=== PATIENT | female | born 1945 | race African-American/Black ===

== ENCOUNTER 2017-05-13 13:33 | Inpatient (IN) | payer MEDICARE ==
[~2017-05-13] VITALS: Ht 172.7 cm; Wt 86.2 kg
[~2017-05-13 13:33] MED LIST: METF500T4 PO
[2017-05-13] MEDS ORDERED: METHYLPREDNISOLONE SOD SUCC 125 MG/2 ML VIAL IV ONE (14:00)
[2017-05-13] MEDS ORDERED: ALBUTEROL (0.5%) 2.5MG/0.5ML NEB HHN ONE ×3 (14:00→16:00)
[2017-05-13] MEDS ORDERED: IPRATROPIUM BROMIDE (0.02%) 0.5MG/2.5ML NEB HHN ONE ×2 (14:00→16:00)
[2017-05-13] MEDS ORDERED: IPRATROPIUM/ALBUTEROL 0.5-3(2.5)MG/3ML NEB ONE (14:01)
[2017-05-13 14:11] LABS: BASOPHILS % 0.9 % (0.0-2.0); EOSINOPHILS % 5.8 % (0.0-5.0); HEMATOCRIT. 44.4 % (36.0-48.0); HEMOGLOBIN. 15.2 g/dL (12.0-16.0); LYMPHOCYTES % 14.1 % (20.0-50.0); MEAN CORPUSCULAR HEMOGLOBIN 31.1 pg (28.0-32.0); MEAN CORPUSCULAR VOLUME 90.8 fL (81.0-99.0); MEAN PLATELET VOLUME 8.5 fl (7.4-10.4); MONOCYTES % 6.8 % (2.0-8.0); NEUTROPHILS % 72.4 % (40.0-76.0); PLATELET 251 x1000/uL (130-400); RED BLOOD CELL COUNT 4.89 mill/uL (4.2-5.4); RED CELL DISTRIBUTION WIDTH 13.3 % (11.6-14.6)
[2017-05-13 14:24] LABS: CARBON DIOXIDE 33 mEq/L (21-32); CHLORIDE 101 mEq/L (98-107)
[2017-05-13] MEDS ORDERED: INSULIN REGULAR (HUMULIN R) 300UNITS/3ML SUBCUT ONE (17:15)
[2017-05-13 18:02] VITALS: BP 126/81
[2017-05-13] MEDS ORDERED: AMLO10TA80 PO (18:16)
[2017-05-13] MEDS ORDERED: DORZ10DR9 EACHEYE (19:02)
[2017-05-13] MEDS ORDERED: LEVOFLOXACIN 500MG TABLET PO NR (19:45)
[2017-05-13] MEDS ORDERED: POTASSIUM CHLORIDE 20MEQ TABLET SR PO NR (19:45)
[2017-05-13 20:00] VITALS: BP 125/85
[2017-05-13] MEDS ORDERED: DEXTROSE 50% WATER 50ML SYRINGE IV PRN (20:00)
[2017-05-13] MEDS: BLOOD SUGAR DIAGNOSTIC STRIP TEST SCH (20:28)
[2017-05-13] MEDS: IPRATROPIUM/ALBUTEROL 0.5-3(2.5)MG/3ML NEB HHN SCH ×2 (20:34→23:43)
[2017-05-13] MEDS: INSULIN LISPRO 100 UNITS/ML SUBCUT SCH (20:58)
[2017-05-13] MEDS ORDERED: ENOXAPARIN 40MG/0.4ML SYR SUBCUT SCH (21:00)
[2017-05-13] MEDS: METHYLPREDNISOLONE SOD SUCC 40 MG/ML VIAL IV SCH (21:33)
[2017-05-13] MEDS: SODIUM CHL 0.45% + KCL 20MEQ/L 1,000 ML IV SCH (21:33)
[2017-05-13] MEDS ORDERED: ONDANSETRON HCL 4MG/2ML VIAL IV PRN (22:30)
[2017-05-13] MEDS ORDERED: HYDROCODONE/ACETAMINOPHEN 5/325MG TABLET PO PRN (22:30)
[2017-05-13] MEDS ORDERED: GUAIFENESIN/CODEINE 100-10MG/5ML UDC PO PRN (22:45)
[2017-05-14] VITALS: BP 113/73
[2017-05-14 04:00] VITALS: BP 129/76
[2017-05-14] MEDS: IPRATROPIUM/ALBUTEROL 0.5-3(2.5)MG/3ML NEB HHN SCH ×3 (04:00→16:16)
[2017-05-14] MEDS: METHYLPREDNISOLONE SOD SUCC 40 MG/ML VIAL IV SCH ×2 (05:33→15:06)
[2017-05-14] MEDS: BLOOD SUGAR DIAGNOSTIC STRIP TEST SCH ×3 (06:21→16:45)
[2017-05-14] MEDS: METFORMIN HCL 500MG TABLET PO SCH ×2 (07:02→17:40)
[2017-05-14] MEDS: INSULIN LISPRO 100 UNITS/ML SUBCUT SCH ×3 (07:04→17:40)
[2017-05-14 08:00] VITALS: BP 101/84
[2017-05-14] MEDS ORDERED: LEVOFLOXACIN 500MG TABLET PO SCH (11:00)
[2017-05-14] MEDS: SODIUM CHL 0.45% + KCL 20MEQ/L 1,000 ML IV SCH (11:26)
[2017-05-14 12:00] VITALS: BP 125/82
[2017-05-14 13:28] LABS: CARBON DIOXIDE 29 mEq/L (21-32); CHLORIDE 99 mEq/L (98-107)
[2017-05-14 14:17] VITALS: BP 125/82
[2017-05-14 16:00] VITALS: BP 110/69
== END 2017-05-14 18:10 | disposition home or self-care (01) | DRG 189 ==
LOC: ER 13:38 → 8WST 15:58 → ENRESERV 16:47
PROVIDERS: ADMIT Internal Medicine; ATTEND Internal Medicine
DX: J96.20 Acute and chronic respiratory failure, unspecified whether with hypoxia or hypercapnia (principal); J44.1 Chronic obstructive pulmonary disease with (acute) exacerbation; E11.65 Type 2 diabetes mellitus with hyperglycemia; F41.9 Anxiety disorder, unspecified; F17.210 Nicotine dependence, cigarettes, uncomplicated; Z79.899 Other long term (current) drug therapy; Z88.1 Allergy status to other antibiotic agents; Z88.8 Allergy status to other drugs, medicaments and biological substances; Z71.6 Tobacco abuse counseling; Z79.84 Long term (current) use of oral hypoglycemic drugs
CPT/HCPCS: 36415; 71010; 80048; 82962; 85025; 94640; 96372; 96374; 99291; C1893; J1650; J1815; J2920; J2930; J3480; J7611; J7620

== ENCOUNTER 2018-08-17 06:44 | Inpatient (IN) | payer MEDICARE ==
[~2018-08-17] VITALS: Ht 170.2 cm; Wt 91.2 kg
[~2018-08-17 06:44] MED LIST changes: +AMLO10TA80 PO; +DORZ10DR9 EACHEYE; -METF500T4 PO; +METF500T6 PO
[2018-08-17] MEDS ORDERED: EPINEPHRINE 0.1MG/ML (1:10,000) 10ML SYR ONE (06:54)
[2018-08-17] MEDS ORDERED: EPINEPHRINE 1:1000 1 MG/ML AMP ONE (06:59)
[2018-08-17] MEDS ORDERED: IPRATROPIUM BROMIDE (0.02%) 0.5MG/2.5ML NEB HHN ONE ×2 (07:00→08:45)
[2018-08-17] MEDS ORDERED: KETAMINE HCL 50 MG/ML 10ML IV ONE ×2 (07:00→07:45)
[2018-08-17] MEDS ORDERED: EPINEPHRINE 1:1000 1 MG/ML AMP INJ ONE ×2 (07:00→08:45)
[2018-08-17] MEDS ORDERED: MAGNESIUM 2 G PREMIX 50 ML IV ONE (07:00)
[2018-08-17] MEDS ORDERED: ALBUTEROL (0.5%) 2.5MG/0.5ML NEB HHN ONE ×2 (07:00→07:03)
[2018-08-17 07:16] LABS: BG BILEVEL POS AIRWAY PRESSURE 18/5; BG CARBOXYHEMOGLOBIN 0.5 % (0.5-1.5); BG DEOXYHEMOGLOBIN 0.3 % (0.0-5.0); BG FRACTION INSPIRED OXYGEN 100; BG METHEMOGLOBIN 0.5 % (0.0-1.5); BG OXYGEN SATURATION 99.7 % (92.0-98.5); BG OXYHEMOGLOBIN 98.7 % (94.0-97.0); BG PCO2 98.8 mmHg (35.0-45.0); BG PO2 510.1 mmHg (75.0-100.0); BG SAMPLE SITE RIGHT RADIAL; BG TOTAL HEMOGLOBIN 14.7 g/dL (12.0-18.0); BG VENT MODE MASK - BIPAP
[2018-08-17] MEDS ORDERED: EPINEPHRINE 1:1000 1 MG/ML AMP IM ONE (07:45)
[2018-08-17 08:24] LABS: BASOPHILS % 0.3 % (0.0-2.0); EOSINOPHILS % 4.7 % (0.0-5.0); HEMATOCRIT. 42.4 % (36.0-48.0); HEMOGLOBIN. 13.8 g/dL (12.0-16.0); LYMPHOCYTES % 11.4 % (20.0-50.0); MEAN CORPUSCULAR HEMOGLOBIN 30.8 pg (28.0-32.0); MEAN CORPUSCULAR VOLUME 94.3 fL (81.0-99.0); MEAN PLATELET VOLUME 9.4 fl (7.4-10.4); MONOCYTES % 4.4 % (2.0-8.0); NEUTROPHILS % 79.2 % (40.0-76.0); PLATELET 307 x1000/uL (130-400); RED CELL DISTRIBUTION WIDTH 13.5 % (11.6-14.6)
[2018-08-17 08:29] LABS: CHLORIDE 101 mEq/L (98-107)
[2018-08-17 08:35] LABS: BG BASE EXCESS -2.4 mmol/L (-2.0-2.0); BG BILEVEL POS AIRWAY PRESSURE 18/5; BG FRACTION INSPIRED OXYGEN 50; BG HCO3 ACT 27.3 mmol/L (22.0-26.0); BG METHEMOGLOBIN 0.5 % (0.0-1.5); BG OXYHEMOGLOBIN 97.5 % (94.0-97.0); BG PCO2 70.5 mmHg (35.0-45.0); BG PH 7.206 (7.350-7.450); BG PO2 181.7 mmHg (75.0-100.0); BG SAMPLE SITE RIGHT RADIAL; BG TOTAL HEMOGLOBIN 14.5 g/dL (12.0-18.0); BG VENT MODE MASK - BIPAP; BG VENT RATE 22 set
[2018-08-17] MEDS ORDERED: METHYLPREDNISOLONE SOD SUCC 125 MG/2 ML VIAL IV ONE (08:45)
[2018-08-17] MEDS ORDERED: METHYLPREDNISOLONE SOD SUCC 125 MG/2 ML VIAL ONE (08:49)
[2018-08-17] MEDS ORDERED: PIPERACILLIN/TAZ 3.375G PREMIX 50 ML IV SCH (10:45)
[2018-08-17] MEDS ORDERED: ONDANSETRON HCL 4MG/2ML INJ IV PRN (10:45)
[2018-08-17] MEDS ORDERED: NA PHOS,M-B/NA PHOS,DI-BA ENEMA 118ML PR PRN (10:45)
[2018-08-17] MEDS ORDERED: IPRATROPIUM/ALBUTEROL 0.5-3(2.5)MG/3ML NEB INH PRN (10:45)
[2018-08-17] MEDS ORDERED: MAGNESIUM/ALUMINUM HYDROXIDE/SIMETHICONE 30ML UDC PO PRN (10:45)
[2018-08-17] MEDS ORDERED: HYDROCODONE/ACETAMINOPHEN 5/325MG TABLET PO PRN (10:45)
[2018-08-17] MEDS ORDERED: CLONIDINE 0.1MG TABLET PO PRN (10:45)
[2018-08-17] MEDS ORDERED: ACETAMINOPHEN 325MG TABLET PO PRN (10:45)
[2018-08-17] MEDS ORDERED: POTASSIUM CHLORIDE 20MEQ TABLET SR PO SCH (10:45)
[2018-08-17] MEDS ORDERED: DIPHENHYDRAMINE 50MG/ML VIAL IV PRN (10:45)
[2018-08-17] MEDS ORDERED: ACETAMINOPHEN 650MG SUPP PR PRN (10:45)
[2018-08-17] MEDS ORDERED: DEXTROSE 50% WATER 50ML SYRINGE IV PRN (11:00)
[2018-08-17] MEDS ORDERED: LEVOFLOXACIN 500MG PREMIX 100 ML IV SCH (11:00)
[2018-08-17] MEDS ORDERED: SODIUM CHLORIDE 0.45% 1,000 ML IV SCH (11:00)
[2018-08-17 11:37] LABS: D-DIMER 0.41 mg/L FEU (<0.50); PROTHROMBIN TIME 10.2 sec (9.1-11.1)
[2018-08-17] MEDS: ENOXAPARIN 30MG/0.3ML SYR SUBCUT SCH ×2 (11:54→20:25)
[2018-08-17] MEDS: BLOOD SUGAR DIAGNOSTIC STRIP TEST SCH ×3 (11:55→20:25)
[2018-08-17] MEDS: LEVOFLOXACIN 750MG PREMIX 150 ML IV SCH (12:00)
[2018-08-17] MEDS: IPRATROPIUM/ALBUTEROL 0.5-3(2.5)MG/3ML NEB HHN SCH ×3 (12:15→20:31)
[2018-08-17 12:35] VITALS: BP 154/86
[2018-08-17] MEDS: INSULIN LISPRO 100 UNITS/ML SUBCUT SCH ×3 (12:50→22:08)
[2018-08-17 13:07] LABS: BG BILEVEL POS AIRWAY PRESSURE 18/5; BG CARBOXYHEMOGLOBIN 0.3 % (0.5-1.5); BG DEOXYHEMOGLOBIN 0.7 % (0.0-5.0); BG FRACTION INSPIRED OXYGEN 50; BG HCO3 ACT 23.5 mmol/L (22.0-26.0); BG METHEMOGLOBIN 0.4 % (0.0-1.5); BG OXYGEN SATURATION 99.3 % (92.0-98.5); BG OXYHEMOGLOBIN 98.6 % (94.0-97.0); BG PCO2 52.5 mmHg (35.0-45.0); BG PH 7.268 (7.350-7.450); BG PO2 211.2 mmHg (75.0-100.0); BG SAMPLE SITE RIGHT RADIAL; BG TOTAL HEMOGLOBIN 14.2 g/dL (12.0-18.0); BG VENT MODE MASK - BIPAP; BG VENT RATE 20 set
[2018-08-17 14:00] VITALS: BP 154/82
[2018-08-17] MEDS ORDERED: INSULIN GLARGINE UD 100 UNITS/ML SYR SUBCUT NR (15:00)
[2018-08-17] MEDS: NICOTINE 21MG PATCH TD SCH (15:10)
[2018-08-17] MEDS: AMLODIPINE 10MG TABLET PO SCH (15:10)
[2018-08-17 16:00] VITALS: BP 148/86
[2018-08-17] MEDS ORDERED: TERBUTALINE SULFATE 1MG/ML VIAL SUBCUT NR (16:15)
[2018-08-17 17:24] LABS: BG BASE EXCESS -2.2 mmol/L (-2.0-2.0); BG BILEVEL POS AIRWAY PRESSURE 24/8; BG CARBOXYHEMOGLOBIN 0.1 % (0.5-1.5); BG FRACTION INSPIRED OXYGEN 45; BG HCO3 ACT 23.8 mmol/L (22.0-26.0); BG METHEMOGLOBIN 1.1 % (0.0-1.5); BG OXYHEMOGLOBIN 97.8 % (94.0-97.0); BG PCO2 45.5 mmHg (35.0-45.0); BG PH 7.337 (7.350-7.450); BG PO2 214.6 mmHg (75.0-100.0); BG SAMPLE SITE RIGHT BRACHIAL; BG TOTAL HEMOGLOBIN 14.8 g/dL (12.0-18.0); BG VENT MODE MASK - BIPAP
[2018-08-17] MEDS: TERBUTALINE SULFATE 1MG/ML VIAL SUBCUT SCH ×2 (17:54→23:08)
[2018-08-17] MEDS: METHYLPREDNISOLONE SOD SUCC 40 MG/ML VIAL IV SCH (17:54)
[2018-08-17] MEDS: DORZOLAM/TIMOLOL 2.23/0.68% OPHTH DROPS 10ML EACHEYE SCH (17:55)
[2018-08-17] MEDS: MONTELUKAST SODIUM 10MG TABLET PO SCH (17:55)
[2018-08-17 18:00] VITALS: BP 156/89
[2018-08-17 20:00] VITALS: BP 139/75
[2018-08-17] MEDS: FAMOTIDINE 20MG/2ML VIAL IV SCH (20:24)
[2018-08-17] MEDS: METFORMIN HCL 500MG TABLET PO SCH (20:24)
[2018-08-17] MEDS: LORAZEPAM 2MG/ML CPJ IV PRN (20:25)
[2018-08-17] MEDS: BUDESONIDE 0.5MG/2ML NEB HHN SCH (20:31)
[2018-08-17] MEDS ORDERED: METFORMIN HCL PO SCH (21:00)
[2018-08-17 22:00] VITALS: BP 128/84
[2018-08-17] MEDS: INSULIN GLARGINE UD 100 UNITS/ML SYR SUBCUT SCH (22:08)
[2018-08-18] VITALS (12 sets, daily range): BP systolic 112–160; BP diastolic 16–97
[2018-08-18] MEDS: IPRATROPIUM/ALBUTEROL 0.5-3(2.5)MG/3ML NEB HHN SCH ×6 (00:25→21:09)
[2018-08-18 00:27] LABS: CLARITY URINE CLOUDY (CLEAR); COLOR URINE YELLOW (YELLOW); KETONES URINE TRACE (NEGATIVE); LEUKOCYTE ESTERASE URINE NEGATIVE (NEGATIVE); NITRITE URINE NEGATIVE (NEGATIVE); OCCULT BLOOD URINE TRACE (NEGATIVE); PROTEIN URINE 1+ (NEGATIVE); SPECIFIC GRAVITY URINE 1.025 (1.005-1.030); UROBILINOGEN URINE 0.2 E.U./dL (0.2-1.0)
[2018-08-18 00:51] LABS: *BARBITURATES SCREEN URINE NEGATIVE (NEGATIVE)
[2018-08-18 00:52] LABS: *AMPHETAMINES SCREEN URINE NEGATIVE (NEGATIVE); *BENZODIAZEPINES SCREEN URINE NEGATIVE (NEGATIVE); *COCAINE SCREEN URINE NEGATIVE (NEGATIVE); METHADONE URINE SCREEN NEGATIVE (NEGATIVE); OPIATES URINE SCREEN PRESUMTIVE POSITIVE (NEGATIVE); PHENCYCLIDINE URINE SCREEN NEGATIVE (NEGATIVE)
[2018-08-18 00:53] LABS: CANNABINOID URINE SCREEN PRESUMTIVE POSITIVE (NEGATIVE)
[2018-08-18] MEDS: METHYLPREDNISOLONE SOD SUCC 40 MG/ML VIAL IV SCH ×3 (01:54→17:07)
[2018-08-18] MEDS: LORAZEPAM 2MG/ML CPJ IV PRN ×2 (03:21→18:22)
[2018-08-18] MEDS: TERBUTALINE SULFATE 1MG/ML VIAL SUBCUT SCH ×4 (05:40→22:18)
[2018-08-18] MEDS: BLOOD SUGAR DIAGNOSTIC STRIP TEST SCH ×4 (05:53→21:09)
[2018-08-18 07:20] LABS: HEMATOCRIT. 39.9 % (36.0-48.0); HEMOGLOBIN. 13.1 g/dL (12.0-16.0); MEAN CORPUSCULAR HEMOGLOBIN 30.7 pg (28.0-32.0); MEAN CORPUSCULAR VOLUME 93.7 fL (81.0-99.0); MEAN PLATELET VOLUME 9.3 fl (7.4-10.4); PLATELET 258 x1000/uL (130-400); RED BLOOD CELL COUNT 4.26 mill/uL (4.2-5.4); RED CELL DISTRIBUTION WIDTH 13.3 % (11.6-14.6)
[2018-08-18] MEDS: INSULIN LISPRO 100 UNITS/ML SUBCUT SCH ×4 (07:20→21:41)
[2018-08-18 07:41] LABS: CHLORIDE 103 mEq/L (98-107)
[2018-08-18 08:03] LABS: LDL CHOLESTEROL 85 mg/dL (5-100)
[2018-08-18 08:05] LABS: HDL CHOLESTEROL 68 mg/dL (40-59)
[2018-08-18] MEDS: BUDESONIDE 0.5MG/2ML NEB HHN SCH ×2 (08:12→21:09)
[2018-08-18] MEDS: DORZOLAM/TIMOLOL 2.23/0.68% OPHTH DROPS 10ML EACHEYE SCH ×2 (08:44→17:08)
[2018-08-18] MEDS: ENOXAPARIN 30MG/0.3ML SYR SUBCUT SCH ×2 (08:44→21:36)
[2018-08-18] MEDS: FAMOTIDINE 20MG/2ML VIAL IV SCH ×2 (08:45→21:09)
[2018-08-18] MEDS: NICOTINE 21MG PATCH TD SCH (08:50)
[2018-08-18 10:48] LABS: BG BASE EXCESS 3.2 mmol/L (-2.0-2.0); BG BILEVEL POS AIRWAY PRESSURE 24/8; BG CARBOXYHEMOGLOBIN 0.6 % (0.5-1.5); BG DEOXYHEMOGLOBIN 1.3 % (0.0-5.0); BG FRACTION INSPIRED OXYGEN 55; BG HCO3 ACT 29.6 mmol/L (22.0-26.0); BG METHEMOGLOBIN 0.4 % (0.0-1.5); BG OXYGEN SATURATION 98.7 % (92.0-98.5); BG OXYHEMOGLOBIN 97.7 % (94.0-97.0); BG PCO2 52.7 mmHg (35.0-45.0); BG PH 7.368 (7.350-7.450); BG SAMPLE SITE RIGHT RADIAL; BG TOTAL HEMOGLOBIN 13.8 g/dL (12.0-18.0); BG VENT MODE MASK - BIPAP; BG VENT RATE 20 set
[2018-08-18] MEDS: AMLODIPINE 10MG TABLET PO SCH (11:48)
[2018-08-18] MEDS: MONTELUKAST SODIUM 10MG TABLET PO SCH (17:07)
[2018-08-18 18:04] LABS: PLATELET ESTIMATE NORMAL
[2018-08-18] MEDS: METFORMIN HCL 500MG TABLET PO SCH (21:09)
[2018-08-18] MEDS: INSULIN GLARGINE UD 100 UNITS/ML SYR SUBCUT SCH (21:37)
[2018-08-19] VITALS (22 sets, daily range): BP systolic 119–161; BP diastolic 45–133
[2018-08-19] MEDS: IPRATROPIUM/ALBUTEROL 0.5-3(2.5)MG/3ML NEB HHN SCH ×7 (01:19→23:56)
[2018-08-19 02:06] LABS: BG BASE EXCESS 3.7 mmol/L (-2.0-2.0); BG BILEVEL POS AIRWAY PRESSURE 18/5; BG CARBOXYHEMOGLOBIN 0.3 % (0.5-1.5); BG DEOXYHEMOGLOBIN 2.6 % (0.0-5.0); BG FRACTION INSPIRED OXYGEN 35; BG HCO3 ACT 29.8 mmol/L (22.0-26.0); BG METHEMOGLOBIN 0.3 % (0.0-1.5); BG OXYGEN SATURATION 97.4 % (92.0-98.5); BG OXYHEMOGLOBIN 96.8 % (94.0-97.0); BG PCO2 51.3 mmHg (35.0-45.0); BG PH 7.382 (7.350-7.450); BG PO2 103.1 mmHg (75.0-100.0); BG SAMPLE SITE RIGHT RADIAL; BG TOTAL HEMOGLOBIN 13.6 g/dL (12.0-18.0); BG VENT MODE MASK - BIPAP; BG VENT RATE 12 set
[2018-08-19] MEDS: LORAZEPAM 2MG/ML CPJ IV PRN ×2 (02:18→08:17)
[2018-08-19] MEDS: METHYLPREDNISOLONE SOD SUCC 40 MG/ML VIAL IV SCH ×3 (02:19→18:06)
[2018-08-19] MEDS: TERBUTALINE SULFATE 1MG/ML VIAL SUBCUT SCH ×4 (05:44→23:17)
[2018-08-19] MEDS: BLOOD SUGAR DIAGNOSTIC STRIP TEST SCH ×4 (06:53→21:50)
[2018-08-19 07:01] LABS: HEMATOCRIT. 40.6 % (36.0-48.0); HEMOGLOBIN. 13.1 g/dL (12.0-16.0); MEAN CORPUSCULAR HEMOGLOBIN 30.4 pg (28.0-32.0); MEAN CORPUSCULAR VOLUME 94.1 fL (81.0-99.0); MEAN PLATELET VOLUME 10.3 fl (7.4-10.4); PLATELET 225 x1000/uL (130-400); RED BLOOD CELL COUNT 4.32 mill/uL (4.2-5.4); RED CELL DISTRIBUTION WIDTH 13.3 % (11.6-14.6)
[2018-08-19 07:20] LABS: CHLORIDE 105 mEq/L (98-107)
[2018-08-19] MEDS: INSULIN LISPRO 100 UNITS/ML SUBCUT SCH ×4 (07:20→22:12)
[2018-08-19 07:41] LABS: BG BASE EXCESS 3.3 mmol/L (-2.0-2.0); BG BILEVEL POS AIRWAY PRESSURE 15/5; BG CARBOXYHEMOGLOBIN 0.6 % (0.5-1.5); BG DEOXYHEMOGLOBIN 2.6 % (0.0-5.0); BG HCO3 ACT 30.2 mmol/L (22.0-26.0); BG METHEMOGLOBIN 0.4 % (0.0-1.5); BG OXYGEN SATURATION 97.4 % (92.0-98.5); BG OXYHEMOGLOBIN 96.4 % (94.0-97.0); BG PCO2 55.5 mmHg (35.0-45.0); BG PH 7.353 (7.350-7.450); BG PO2 104.8 mmHg (75.0-100.0); BG SAMPLE SITE RIGHT RADIAL; BG TOTAL HEMOGLOBIN 13.8 g/dL (12.0-18.0); BG VENT MODE MASK - BIPAP; BG VENT RATE 20 set
[2018-08-19] MEDS: BUDESONIDE 0.5MG/2ML NEB HHN SCH ×2 (08:16→19:55)
[2018-08-19] MEDS: FAMOTIDINE 20MG/2ML VIAL IV SCH ×2 (08:36→21:53)
[2018-08-19] MEDS: ENOXAPARIN 30MG/0.3ML SYR SUBCUT SCH (08:37)
[2018-08-19] MEDS: AMLODIPINE 10MG TABLET PO SCH ×2 (09:00→15:09)
[2018-08-19] MEDS: NICOTINE 21MG PATCH TD SCH (09:59)
[2018-08-19] MEDS: DORZOLAM/TIMOLOL 2.23/0.68% OPHTH DROPS 10ML EACHEYE SCH ×2 (10:03→17:00)
[2018-08-19 11:32] LABS: PLATELET ESTIMATE NORMAL
[2018-08-19 11:44] LABS: BG BASE EXCESS 3.7 mmol/L (-2.0-2.0); BG CARBOXYHEMOGLOBIN 0.8 % (0.5-1.5); BG DEOXYHEMOGLOBIN 11.9 % (0.0-5.0); BG HCO3 ACT 29.8 mmol/L (22.0-26.0); BG METHEMOGLOBIN 0.3 % (0.0-1.5); BG PCO2 51.1 mmHg (35.0-45.0); BG PH 7.384 (7.350-7.450); BG PO2 55.4 mmHg (75.0-100.0); BG SAMPLE SITE RIGHT BRACHIAL; BG TOTAL HEMOGLOBIN 14.2 g/dL (12.0-18.0); BG VENT MODE ROOM AIR
[2018-08-19] MEDS: LEVOFLOXACIN 750MG PREMIX 150 ML IV SCH (11:57)
[2018-08-19] MEDS: MONTELUKAST SODIUM 10MG TABLET PO SCH (18:06)
[2018-08-19] MEDS: METFORMIN HCL 500MG TABLET PO SCH (21:53)
[2018-08-19] MEDS: INSULIN GLARGINE UD 100 UNITS/ML SYR SUBCUT SCH (22:11)
[2018-08-20] VITALS (22 sets, daily range): BP systolic 92–153; BP diastolic 47–101
[2018-08-20] MEDS: METHYLPREDNISOLONE SOD SUCC 40 MG/ML VIAL IV SCH ×3 (02:39→17:02)
[2018-08-20] MEDS: IPRATROPIUM/ALBUTEROL 0.5-3(2.5)MG/3ML NEB HHN SCH ×5 (04:08→21:15)
[2018-08-20] MEDS: TERBUTALINE SULFATE 1MG/ML VIAL SUBCUT SCH ×4 (05:45→22:04)
[2018-08-20 05:56] LABS: HEMATOCRIT 40.5 % (36.0-48.0); HEMOGLOBIN 12.9 g/dL (12.0-16.0); MEAN CORPUSCULAR VOLUME 93.8 fL (81.0-99.0); PLATELET 236 x1000/uL (130-400); RED BLOOD CELL COUNT 4.31 mill/uL (4.2-5.4); RED CELL DISTRIBUTION WIDTH 13.2 % (11.6-14.6)
[2018-08-20 06:04] LABS: CHLORIDE 102 mEq/L (98-107)
[2018-08-20 07:18] LABS: BG BASE EXCESS 5.8 mmol/L (-2.0-2.0); BG BILEVEL POS AIRWAY PRESSURE 15/5; BG CARBOXYHEMOGLOBIN 1.1 % (0.5-1.5); BG DEOXYHEMOGLOBIN 2.9 % (0.0-5.0); BG HCO3 ACT 31.8 mmol/L (22.0-26.0); BG METHEMOGLOBIN 0.4 % (0.0-1.5); BG OXYGEN SATURATION 97.1 % (92.0-98.5); BG OXYHEMOGLOBIN 95.6 % (94.0-97.0); BG PCO2 51.3 mmHg (35.0-45.0); BG PO2 92.2 mmHg (75.0-100.0); BG SAMPLE SITE RIGHT RADIAL; BG TOTAL HEMOGLOBIN 14.3 g/dL (12.0-18.0); BG VENT MODE MASK - BIPAP; BG VENT RATE 20 set
[2018-08-20] MEDS: BLOOD SUGAR DIAGNOSTIC STRIP TEST SCH ×4 (07:50→21:02)
[2018-08-20] MEDS: BUDESONIDE 0.5MG/2ML NEB HHN SCH ×2 (07:51→21:15)
[2018-08-20] MEDS: DORZOLAM/TIMOLOL 2.23/0.68% OPHTH DROPS 10ML EACHEYE SCH ×2 (08:56→17:01)
[2018-08-20] MEDS: INSULIN LISPRO 100 UNITS/ML SUBCUT SCH ×3 (08:56→22:05)
[2018-08-20] MEDS: AMLODIPINE 10MG TABLET PO SCH (09:02)
[2018-08-20] MEDS: NICOTINE 21MG PATCH TD SCH (09:03)
[2018-08-20] MEDS: FAMOTIDINE 20MG/2ML VIAL IV SCH ×2 (09:03→21:09)
[2018-08-20] MEDS: ENOXAPARIN 40MG/0.4ML SYR SUBCUT SCH (09:03)
[2018-08-20] MEDS: GUAIFENESIN 600MG ER TABLET PO SCH ×2 (13:45→21:09)
[2018-08-20] MEDS ORDERED: ACETYLCYSTEINE 100MG/ML 10% VIAL 4ML INH SCH (14:00)
[2018-08-20] MEDS: MONTELUKAST SODIUM 10MG TABLET PO SCH (17:03)
[2018-08-20] MEDS: METFORMIN HCL 500MG TABLET PO SCH (21:09)
[2018-08-20] MEDS: INSULIN GLARGINE UD 100 UNITS/ML SYR SUBCUT SCH (22:06)
[2018-08-21] VITALS (12 sets, daily range): BP systolic 118–165; BP diastolic 48–83
[2018-08-21] MEDS: IPRATROPIUM/ALBUTEROL 0.5-3(2.5)MG/3ML NEB HHN SCH ×6 (00:53→21:16)
[2018-08-21] MEDS: TERBUTALINE SULFATE 1MG/ML VIAL SUBCUT SCH ×4 (05:32→23:00)
[2018-08-21] MEDS: INSULIN LISPRO 100 UNITS/ML SUBCUT SCH ×4 (05:50→21:00)
[2018-08-21] MEDS: BLOOD SUGAR DIAGNOSTIC STRIP TEST SCH ×4 (05:50→21:00)
[2018-08-21 07:04] LABS: HEMATOCRIT 42.5 % (36.0-48.0); HEMOGLOBIN 14.1 g/dL (12.0-16.0); MEAN CORPUSCULAR VOLUME 93.6 fL (81.0-99.0); PLATELET 266 x1000/uL (130-400); RED BLOOD CELL COUNT 4.54 mill/uL (4.2-5.4); RED CELL DISTRIBUTION WIDTH 13.3 % (11.6-14.6)
[2018-08-21 07:58] LABS: CHLORIDE 100 mEq/L (98-107)
[2018-08-21 08:12] LABS: BG BASE EXCESS 7.3 mmol/L (-2.0-2.0); BG BILEVEL POS AIRWAY PRESSURE 15/5; BG CARBOXYHEMOGLOBIN 1.1 % (0.5-1.5); BG DEOXYHEMOGLOBIN 2.9 % (0.0-5.0); BG FRACTION INSPIRED OXYGEN 35; BG HCO3 ACT 32.5 mmol/L (22.0-26.0); BG METHEMOGLOBIN 0.3 % (0.0-1.5); BG OXYGEN SATURATION 97.1 % (92.0-98.5); BG OXYHEMOGLOBIN 95.7 % (94.0-97.0); BG PCO2 47.5 mmHg (35.0-45.0); BG PH 7.453 (7.350-7.450); BG PO2 89.6 mmHg (75.0-100.0); BG SAMPLE SITE RIGHT BRACHIAL; BG TOTAL HEMOGLOBIN 14.4 g/dL (12.0-18.0); BG VENT MODE MASK - BIPAP
[2018-08-21] MEDS: GUAIFENESIN 600MG ER TABLET PO SCH ×2 (08:59→21:00)
[2018-08-21] MEDS: AMLODIPINE 10MG TABLET PO SCH (08:59)
[2018-08-21] MEDS: NICOTINE 21MG PATCH TD SCH (09:03)
[2018-08-21] MEDS: FAMOTIDINE 20MG/2ML VIAL IV SCH ×2 (09:04→21:00)
[2018-08-21] MEDS: METHYLPREDNISOLONE SOD SUCC 40 MG/ML VIAL IV SCH ×2 (09:04→17:13)
[2018-08-21] MEDS: ENOXAPARIN 40MG/0.4ML SYR SUBCUT SCH (09:16)
[2018-08-21] MEDS: DORZOLAM/TIMOLOL 2.23/0.68% OPHTH DROPS 10ML EACHEYE SCH ×2 (09:18→17:13)
[2018-08-21] MEDS: LEVOFLOXACIN 750MG PREMIX 150 ML IV SCH (11:44)
[2018-08-21] MEDS: MONTELUKAST SODIUM 10MG TABLET PO SCH (17:12)
[2018-08-21] MEDS: HYDRALAZINE HCL 25MG TABLET PO SCH (21:00)
[2018-08-21] MEDS: METFORMIN HCL 500MG TABLET PO SCH (21:00)
[2018-08-21] MEDS: INSULIN GLARGINE UD 100 UNITS/ML SYR SUBCUT SCH (22:00)
[2018-08-22] VITALS (14 sets, daily range): BP systolic 106–145; BP diastolic 51–82
[2018-08-22] MEDS: IPRATROPIUM/ALBUTEROL 0.5-3(2.5)MG/3ML NEB HHN SCH ×5 (00:27→21:23)
[2018-08-22] MEDS: TERBUTALINE SULFATE 1MG/ML VIAL SUBCUT SCH ×4 (06:00→22:52)
[2018-08-22] MEDS: BLOOD SUGAR DIAGNOSTIC STRIP TEST SCH ×4 (06:50→21:06)
[2018-08-22] MEDS: INSULIN LISPRO 100 UNITS/ML SUBCUT SCH ×4 (07:20→21:36)
[2018-08-22] MEDS: FAMOTIDINE 20MG/2ML VIAL IV SCH ×2 (08:44→20:09)
[2018-08-22] MEDS: ENOXAPARIN 40MG/0.4ML SYR SUBCUT SCH (08:44)
[2018-08-22] MEDS: METHYLPREDNISOLONE SOD SUCC 40 MG/ML VIAL IV SCH ×2 (08:44→17:16)
[2018-08-22] MEDS: NICOTINE 21MG PATCH TD SCH (08:44)
[2018-08-22] MEDS: HYDRALAZINE HCL 25MG TABLET PO SCH ×2 (08:45→21:35)
[2018-08-22] MEDS: GUAIFENESIN 600MG ER TABLET PO SCH ×2 (08:45→21:34)
[2018-08-22] MEDS: AMLODIPINE 10MG TABLET PO SCH (08:45)
[2018-08-22] MEDS: DORZOLAM/TIMOLOL 2.23/0.68% OPHTH DROPS 10ML EACHEYE SCH ×2 (08:45→17:16)
[2018-08-22] MEDS: MONTELUKAST SODIUM 10MG TABLET PO SCH (17:16)
[2018-08-22] MEDS: METFORMIN HCL 500MG TABLET PO SCH (21:34)
[2018-08-22] MEDS: INSULIN GLARGINE UD 100 UNITS/ML SYR SUBCUT SCH (21:37)
[2018-08-23 00:29] VITALS: BP 141/28
[2018-08-23 01:29] VITALS: BP 123/69
[2018-08-23] MEDS: IPRATROPIUM/ALBUTEROL 0.5-3(2.5)MG/3ML NEB HHN SCH (01:32)
== END 2018-08-22 01:49 | disposition home or self-care (01) | DRG 291 ==
LOC: ER 06:53 → EDBEDREQ 09:06 → ENRESERV 09:16 → CANRESERV 09:16 → ENRESERV 09:32 → 3WST 10:28 → CVICU 08-19 08:50 → 3WST 08-20 17:45
PROVIDERS: ADMIT Internal Medicine; ATTEND Internal Medicine
PROC: 5A09357 Assistance with Respiratory Ventilation, Less than 24 Consecutive Hours, Continuous Positive Airway Pressure (ICD-10-PCS; principal; 2018-08-17)
PROC: 5A09357 Assistance with Respiratory Ventilation, Less than 24 Consecutive Hours, Continuous Positive Airway Pressure (ICD-10-PCS; 2018-08-18)
PROC: 5A09357 Assistance with Respiratory Ventilation, Less than 24 Consecutive Hours, Continuous Positive Airway Pressure (ICD-10-PCS; 2018-08-19)
PROC: 5A09357 Assistance with Respiratory Ventilation, Less than 24 Consecutive Hours, Continuous Positive Airway Pressure (ICD-10-PCS; 2018-08-20)
PROC: 5A09357 Assistance with Respiratory Ventilation, Less than 24 Consecutive Hours, Continuous Positive Airway Pressure (ICD-10-PCS; 2018-08-21)
DX: I11.0 Hypertensive heart disease with heart failure (principal); J96.22 Acute and chronic respiratory failure with hypercapnia; J44.1 Chronic obstructive pulmonary disease with (acute) exacerbation; R65.10 Systemic inflammatory response syndrome (SIRS) of non-infectious origin without acute organ dysfunction; I50.23 Acute on chronic systolic (congestive) heart failure; E11.65 Type 2 diabetes mellitus with hyperglycemia; E87.6 Hypokalemia; E83.41 Hypermagnesemia; F17.210 Nicotine dependence, cigarettes, uncomplicated; I27.20 Pulmonary hypertension, unspecified; J06.9 Acute upper respiratory infection, unspecified; Z53.29 Procedure and treatment not carried out because of patient's decision for other reasons; Z91.19 Patient's noncompliance with other medical treatment and regimen; Z88.1 Allergy status to other antibiotic agents; Z88.8 Allergy status to other drugs, medicaments and biological substances; Z79.84 Long term (current) use of oral hypoglycemic drugs; Z79.899 Other long term (current) drug therapy
CPT/HCPCS: 36415; 36600; 71045; 80048; 80053; 80061; 80076; 80305; 81003; 82375; 82805; 82962; 83036; 83735; 83880; 84439; 84443; 84484; 85025; 85027; 85379; 85610; 87040; 87070; 87086; 87804; 93306; 93970; 94640; 94660; 96365; 96372; 96375; 96376; 99291; A6261; C1893; J1650; J1815; J1956; J2060; J2920; J2930; J3105; J3475; J3490; J7050; J7611; J7620; J7626; A4315